=== PATIENT | female | born 1930 | race African-American/Black ===

== ENCOUNTER 2016-10-14 02:33 | Emergency (ER) | payer MEDICAID ==
[2016-10-14 02:30] VITALS: O2SAT 100
[2016-10-14] MEDS ORDERED: DIPHTH/TETANUS/ACEL PERTUSSIS (BOOSTER) 0.5 ML VIAL/PFS IM ONE (02:34)
[2016-10-14 02:51] LABS: I-STAT POTASSIUM 3.4 MMOL/L (3.5-4.9)
[2016-10-14 02:52] LABS: AUTOMATED NEUTROPHIL # 4.1 TH/MM3 (1.8-7.7); BASOPHIL # 0.1 TH/MM3 (0-0.2); BASOPHIL % 1.1 % (0.0-2.0); EOSINOPHIL # 0.2 TH/MM3 (0-0.4); EOSINOPHIL % 1.4 % (0.0-4.0); HEMATOCRIT 35.9 % (35.0-46.0); LYMPH % 55.7 % (9.0-44.0); MEAN CELL VOLUME 70.9 FL (80.0-100.0); MEAN CORPUSCULAR HEMOGLOBIN 22.6 PG (27.0-34.0); MEAN CORPUSCULAR HGB CONC 31.9 % (32.0-36.0); MONO % 3.5 % (0.0-8.0); NEUT % 38.3 % (16.0-70.0); PLATELET COUNT 303 TH/MM3 (150-450); RED BLOOD COUNT 5.07 MIL/MM3 (4.00-5.30); WHITE BLOOD COUNT 10.8 TH/MM3 (4.0-11.0)
[2016-10-14] MEDS ORDERED: IOHEXOL 350 MG/ML 10 ML VIAL (for RAD DIAG) IV ONE (02:57)
[2016-10-14 02:58] LABS: HEMO FLAGS AUTO DIFF
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
[2016-10-14 03:06] LABS: APTT (PATIENT) 24.6 SEC (24.3-30.1); PROTHROMBIN TIME - PATIENT 10.8 SEC (9.8-11.6)
[2016-10-14 03:25] LABS: NEUTROPHIL # MANUAL DIFF 4.5 TH/MM3 (1.8-7.7); POLYS (SEG NEUTROPHILS) 42 % (16-70); WBC DIFF SAMPLE 100
[2016-10-14 03:27] LABS: PLATELET ESTIMATE SMEAR NORMAL (NORMAL); PLATELET MORPHOLOGY NORMAL (NORMAL); SCAN/DIFF FINAL DIFF MANUAL; TARGET CELLS 1+ (NORMAL); TEARDROP RBCS 1+ (NORMAL)
[2016-10-14 03:30] VITALS: BP 131/72; PULSE 90; RESP 18; O2SAT 100
[2016-10-14] MEDS ORDERED: CEPH-460 PO (03:35)
[2016-10-14] MEDS ORDERED: HYDR-3533 PO (03:35)
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
== END 2016-10-14 05:00 | disposition home or self-care (01) ==
LOC: NEPI 02:33 → EDBD 02:33 → NEPE 05:00
DX: S71.102A Unspecified open wound, left thigh, initial encounter (principal); F10.929 Alcohol use, unspecified with intoxication, unspecified; W32.0XXA Accidental handgun discharge, initial encounter; Y92.252 Music hall as the place of occurrence of the external cause; Y90.5 Blood alcohol level of 100-119 mg/100 ml
CPT/HCPCS: 71010; 72170; 73552; 75635; 80307; 82435; 82565; 82947; 84132; 84295; 84520; 85007; 85027; 85610; 85730; 86850; 86900; 86901; 90471; 90715; 96374; 99285; 99291; E0113; Q9967; G0390